=== PATIENT | male | born 1965 | race Caucasian/White ===

== ENCOUNTER 2019-12-19 13:49 | Emergency (ER) | payer SELFPAY ==
[2019-12-19 15:46] VITALS: BP 129/76; PULSE 92; RESP 20; TEMP 37; O2SAT 96; BMI 40.6
--- NOTE | 2019-12-19 16:31 | ED.EXTPRO ---
HPI - Extremity Problem General Chief complaint: Extremity Problem Stated complaint: leg infection? 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 No fever no open wounds Related Data Allergies Allergy/AdvReac Type Severity Reaction Status Date / Time Penicillins [PENICILLINS] Allergy Unknown SWELLING/HI Unverified 10/30/19 15:09 VES PCN Allergy Unknown severe Uncoded 02/14/12 00:00 swelling Review of Systems Review of Systems: REVIEW OF SYSTEMS: Pertinent positives and negatives are stated above in the history. GEN: no fevers, chills, fatigue HEENT: no nasal congestion, sore throat, ear pain NEURO: no headache, dizziness, focal weakness PULM: no cough, shortness of breath CV: no chest pain, palpitations, LE edema ABD: no abdominal pain, nausea, vomiting, diarrhea ROS otherwise negative x 10 [facility] Past Medical History Medical History Anxiety Hypercholesteremia Hypertension Social History Social History Advance Directives: No Advance Directives Information Provided: No Physical Exam Vital Signs: Vital Signs: Last Vital Signs Temp 98.6 F 12/19/19 15:46 Pulse 92 12/19/19 15:46 Resp 20 12/19/19 15:46 BP 129/76 12/19/19 15:46 Pulse Ox 96 12/19/19 15:46 Body Mass Index 40.6 Appearance: Alert. Oriented X3. No acute distress. Eyes: Pupils equal, round and reactive to light. ENT: Pharynx normal. Neck: Normal inspection. Neck supple. CVS: Normal heart rate and rhythm. Pulses normal. Respiratory: No respiratory distress. Breath sounds normal. Abdomen: Soft and nontender. Skin: Skin warm and dry. slight erythema right amador Extremities: nonpitting 1+ edema. calluses with dry skin right sole Neuro: Oriented X 3. No motor deficit. No sensory deficit.
== END 2019-12-19 16:45 | disposition home or self-care (01) ==
PROVIDERS: Emergency Provider Internal Medicine
DX: R60.0 Localized edema (principal); M79.606 Pain in leg, unspecified
CPT/HCPCS: 99282; 99283